=== PATIENT | female | born 1940 | race Caucasian/White ===

== ENCOUNTER 2023-05-13 12:56 | Inpatient (IN) | payer OTHER, MEDICARE ==
[~2023-05-13] VITALS: Ht 152.4 cm; Wt 105.2 kg
[2023-05-13 13:07] VITALS: BP_SYST 122; PULSE 74; RESP 20; TEMP 97.8; O2SAT 98
[2023-05-13 14:07] LABS: BASOPHILS # (AUTO) 0.4 K/uL (0.0-0.2); BASOPHILS % (AUTO) 3.4 % (0.0-2.0); EOSINOPHILS # (AUTO) 0.2 K/uL (0.0-0.4); EOSINOPHILS % (AUTO) 2.1 % (0.0-4.0); HEMATOCRIT 30.7 % (36-48); LYMPHOCYTES # (AUTO) 1.5 K/uL (1.0-5.5); LYMPHOCYTES % (AUTO) 13.8 % (20.5-51.5); MEAN CORPUSCULAR HEMOGLOBIN 27 pg (27-31); MEAN CORPUSCULAR HGB CONC 33 % (32-36); MEAN CORPUSCULAR VOLUME 82 fL (79.0-98.0); MONOCYTES % (AUTO) 9.3 % (1.7-9.3); NEUTROPHILS % (AUTO) 71.4 % (40.0-70.0); PLATELET COUNT (AUTO) 405 K/uL (130-430); RED BLOOD CELL COUNT(AUTO) 3.76 MIL/uL (4.2-6.2); RED CELL DISTRIBUTION WIDTH 16.4 % (9.0-15.0); WHITE BLOOD COUNT (AUTO) 11.2 K/uL (4.8-10.8)
[2023-05-13 14:21] LABS: ANION GAP 8 (5-15); CALCIUM 10.2 mg/dL (8.4-11.0); CARBON DIOXIDE 27 mmol/L (23-29); CHLORIDE 103 mmol/L (98-107); CREATININE 1.32 mg/dL (0.55-1.30); GLUCOSE 128 mg/dL (74-106); POTASSIUM 3.9 mmol/L (3.5-5.1); SODIUM SERUM 138 mmol/L (136-145); UREA NITROGEN, BLOOD 26 mg/dL (8-21)
[2023-05-13 14:25] LABS: ALANINE AMINOTRANSFERASE 25 U/L (12-78); ALBUMIN 2.7 g/dL (3.4-4.8); ASPARTATE AMINOTRANSFERASE 21 U/L (10-37); TOTAL BILIRUBIN 0.9 mg/dL (0.0-1.0); TOTAL PROTEIN, SERUM 7.1 g/dL (6.4-8.3)
[2023-05-13] MEDS ORDERED: CARV6.2554 PO (17:05)
[2023-05-13] MEDS ORDERED: ANASTROZOLE PO (17:05)
[2023-05-13] MEDS ORDERED: POTA5TAB2 PO (17:05)
[2023-05-13] MEDS ORDERED: FURO40TA5 PO (17:05)
[2023-05-13] MEDS ORDERED: DICYCLOMINE 20 MG PO (17:05)
[2023-05-13] MEDS ORDERED: ATOR-1 PO (17:05)
[2023-05-13] MEDS ORDERED: RIVA15TA PO (17:05)
[2023-05-13] MEDS ORDERED: SACU1TAB7 PO (17:05)
[2023-05-13] MEDS ORDERED: METF-379 PO (17:05)
[2023-05-13] MEDS ORDERED: FEBU40TA3 PO (17:05)
[2023-05-13 18:26] VITALS: BP_SYST 143; PULSE 77; RESP 18; TEMP 96.6; O2SAT 97
[2023-05-13] MEDS ORDERED: INSULIN REGULAR, HUMAN 100 UNITS/ML, 3 ML VIAL (humuLIN R) SUBCUT PRN (18:45)
[2023-05-13] MEDS ORDERED: traMADol HCL HCL 50 MG TABLET (ULTRAM) PO ONE (19:00)
[2023-05-13 20:00] VITALS: BP_SYST 124; PULSE 88; RESP 18; TEMP 98.6; O2SAT 95
[2023-05-13] MEDS: DAPTOmycin 420 MG in NS 50 ML IV SCH (21:47)
[2023-05-13] MEDS: SACUBITRIL/VALSARTAN 24 MG-26 MG 1 TABLET PO SCH (21:57)
[2023-05-13] MEDS: CARVEDILOL 6.25 MG TABLET (COREG) PO SCH (21:58)
[2023-05-13] MEDS: ATORVASTATIN 20 MG TABLET PO SCH (21:59)
[2023-05-13] MEDS: ACETAMINOPHEN 325 MG TABLET PO PRN (22:16)
[2023-05-13] MEDS: AMPICILLIN SODIUM/SULBACTAM NA 1.5 GM in NS 50 ML IV SCH (22:51)
[2023-05-14 00:14] VITALS: BP_SYST 107; PULSE 78; RESP 20; TEMP 97.4; O2SAT 94
[2023-05-14] MEDS: traMADol HCL HCL 50 MG TABLET (ULTRAM) PO SCH ×4 (06:00→17:08)
[2023-05-14] MEDS: AMPICILLIN SODIUM/SULBACTAM NA 1.5 GM in NS 50 ML IV SCH ×3 (06:22→21:44)
[2023-05-14 08:00] VITALS: BP_SYST 107; PULSE 70; RESP 19; TEMP 96.9; O2SAT 95
[2023-05-14] MEDS: ANASTROZOLE 1 MG TABLET (ARIMIDEX) PO SCH (08:31)
[2023-05-14] MEDS: DICYCLOMINE HCL 10 MG CAPSULE PO SCH (08:32)
[2023-05-14] MEDS: FUROSEMIDE 40 MG TABLET PO SCH (08:32)
[2023-05-14] MEDS: SACUBITRIL/VALSARTAN 24 MG-26 MG 1 TABLET PO SCH ×2 (08:32→21:06)
[2023-05-14] MEDS: POTASSIUM CHLORIDE 10 MEQ TABLET.ER PO SCH (08:32)
[2023-05-14] MEDS: metFORMIN HCL 500 MG TABLET PO SCH (08:32)
[2023-05-14] MEDS: CARVEDILOL 6.25 MG TABLET (COREG) PO SCH ×2 (08:36→20:42)
[2023-05-14] MEDS: FEBUXOSTAT 40 MG PO SCH ×2 (08:37→11:49)
[2023-05-14] MEDS ORDERED: FEBUXOSTAT PO SCH (09:00)
[2023-05-14] MEDS: RIVAROXABAN 15 MG TABLET PO SCH (09:04)
[2023-05-14 11:43] LABS: BASOPHILS # (AUTO) 0.1 K/uL (0.0-0.2); EOSINOPHILS # (AUTO) 0.2 K/uL (0.0-0.4); EOSINOPHILS % (AUTO) 2.5 % (0.0-4.0); HEMATOCRIT 30.9 % (36-48); HEMOGLOBIN 10.2 g/dL (12.0-16.0); LYMPHOCYTES # (AUTO) 1.3 K/uL (1.0-5.5); LYMPHOCYTES % (AUTO) 13.5 % (20.5-51.5); MEAN CORPUSCULAR HEMOGLOBIN 27 pg (27-31); MEAN CORPUSCULAR HGB CONC 33 % (32-36); MEAN CORPUSCULAR VOLUME 82 fL (79.0-98.0); MONOCYTES # (AUTO) 1.1 K/uL (0.0-1.0); MONOCYTES % (AUTO) 11.7 % (1.7-9.3); NEUTROPHILS # (AUTO) 6.7 K/uL (1.8-7.7); NEUTROPHILS % (AUTO) 71.3 % (40.0-70.0); PLATELET COUNT (AUTO) 393 K/uL (130-430); RED BLOOD CELL COUNT(AUTO) 3.77 MIL/uL (4.2-6.2); RED CELL DISTRIBUTION WIDTH 16.5 % (9.0-15.0); WHITE BLOOD COUNT (AUTO) 9.4 K/uL (4.8-10.8)
[2023-05-14 11:45] VITALS: BP_SYST 127; PULSE 79; RESP 18; TEMP 98.2; O2SAT 93
[2023-05-14 11:49] LABS: ERYTHROCYTE SEDIMENTATION RATE 12 MM/HR (0-20)
[2023-05-14] MEDS ORDERED: ANASTROZOLE 1 MG TABLET (ARIMIDEX) PO SCH (13:45)
[2023-05-14] MEDS ORDERED: ANASTROZOLE 1 MG TABLET (ARIMIDEX) PO ONE (14:00)
[2023-05-14 16:48] VITALS: BP_SYST 136; PULSE 77; RESP 17; TEMP 98; O2SAT 95
[2023-05-14 20:00] VITALS: BP_SYST 118; PULSE 73; RESP 18; TEMP 97.5; O2SAT 96
[2023-05-14] MEDS: ATORVASTATIN 20 MG TABLET PO SCH (20:41)
[2023-05-14] MEDS: LANOLIN ALCOHOL/MO/W.PET/CERES 57 GM CREAM..G. TP SCH (20:43)
[2023-05-15 00:46] VITALS: BP_SYST 124; PULSE 68; RESP 16; TEMP 97.8; O2SAT 98
[2023-05-15] MEDS: AMPICILLIN SODIUM/SULBACTAM NA 1.5 GM in NS 50 ML IV SCH ×3 (05:20→21:41)
[2023-05-15 08:00] VITALS: BP_SYST 136; PULSE 75; RESP 16; TEMP 98.2; O2SAT 94
[2023-05-15] MEDS ORDERED: ANASTROZOLE 1 MG TABLET (ARIMIDEX) PO SCH (09:00)
[2023-05-15] MEDS: metFORMIN HCL 500 MG TABLET PO SCH (09:53)
[2023-05-15] MEDS: FUROSEMIDE 40 MG TABLET PO SCH (09:57)
[2023-05-15] MEDS: ANASTROZOLE 1 MG TABLET (ARIMIDEX) PO SCH (09:57)
[2023-05-15] MEDS: FEBUXOSTAT 40 MG PO SCH (09:58)
[2023-05-15] MEDS: RIVAROXABAN 15 MG TABLET PO SCH (09:58)
[2023-05-15] MEDS: CARVEDILOL 6.25 MG TABLET (COREG) PO SCH ×2 (09:58→21:40)
[2023-05-15] MEDS: SACUBITRIL/VALSARTAN 24 MG-26 MG 1 TABLET PO SCH ×2 (09:59→21:48)
[2023-05-15] MEDS: DICYCLOMINE HCL 10 MG CAPSULE PO SCH (09:59)
[2023-05-15] MEDS: LANOLIN ALCOHOL/MO/W.PET/CERES 57 GM CREAM..G. TP SCH ×2 (09:59→21:48)
[2023-05-15] MEDS: POTASSIUM CHLORIDE 10 MEQ TABLET.ER PO SCH (09:59)
[2023-05-15] MEDS ORDERED: FEBUXOSTAT 40 MG PO SCH ×2 (11:00)
[2023-05-15 11:28] VITALS: BP_SYST 124; PULSE 72; RESP 18; TEMP 97.7
[2023-05-15 15:39] VITALS: O2SAT 95
[2023-05-15 15:40] VITALS: BP_SYST 126; PULSE 70; RESP 18; TEMP 97; O2SAT 100
[2023-05-15 20:00] VITALS: BP_SYST 136; PULSE 71; RESP 18; TEMP 97.9; O2SAT 95
[2023-05-15] MEDS: ATORVASTATIN 20 MG TABLET PO SCH (21:40)
[2023-05-15] MEDS: DAPTOmycin 420 MG in NS 50 ML IV SCH (23:09)
[2023-05-16 00:50] VITALS: BP_SYST 116; PULSE 75; RESP 16; TEMP 97.1; O2SAT 93
[2023-05-16 05:38] LABS: BASOPHILS # (AUTO) 0.1 K/uL (0.0-0.2); BASOPHILS % (AUTO) 1.1 % (0.0-2.0); EOSINOPHILS # (AUTO) 0.4 K/uL (0.0-0.4); HEMATOCRIT 29.5 % (36-48); HEMOGLOBIN 9.6 g/dL (12.0-16.0); LYMPHOCYTES # (AUTO) 1.8 K/uL (1.0-5.5); MEAN CORPUSCULAR HEMOGLOBIN 27 pg (27-31); MEAN CORPUSCULAR HGB CONC 33 % (32-36); MEAN CORPUSCULAR VOLUME 82 fL (79.0-98.0); MONOCYTES # (AUTO) 1.2 K/uL (0.0-1.0); NEUTROPHILS # (AUTO) 7.6 K/uL (1.8-7.7); NEUTROPHILS % (AUTO) 67.9 % (40.0-70.0); PLATELET COUNT (AUTO) 405 K/uL (130-430); RED CELL DISTRIBUTION WIDTH 16.1 % (9.0-15.0); WHITE BLOOD COUNT (AUTO) 11.2 K/uL (4.8-10.8)
[2023-05-16 05:55] LABS: ALANINE AMINOTRANSFERASE 20 U/L (12-78); ALBUMIN 2.2 g/dL (3.4-4.8); ANION GAP 11 (5-15); ASPARTATE AMINOTRANSFERASE 28 U/L (10-37); CALCIUM 9.5 mg/dL (8.4-11.0); CARBON DIOXIDE 25 mmol/L (23-29); CHLORIDE 105 mmol/L (98-107); CREATININE 1.12 mg/dL (0.55-1.30); GLUCOSE 96 mg/dL (74-106); POTASSIUM 4.3 mmol/L (3.5-5.1); SODIUM SERUM 141 mmol/L (136-145); TOTAL BILIRUBIN 0.8 mg/dL (0.0-1.0); TOTAL PROTEIN, SERUM 6.2 g/dL (6.4-8.3); UREA NITROGEN, BLOOD 25 mg/dL (8-21)
[2023-05-16] MEDS: AMPICILLIN SODIUM/SULBACTAM NA 1.5 GM in NS 50 ML IV SCH (06:27)
[2023-05-16 08:00] VITALS: BP_SYST 127; PULSE 71; RESP 18; TEMP 96.9; O2SAT 97
[2023-05-16] MEDS: FEBUXOSTAT 40 MG PO SCH (09:26)
[2023-05-16] MEDS: SACUBITRIL/VALSARTAN 24 MG-26 MG 1 TABLET PO SCH ×2 (09:26→22:09)
[2023-05-16] MEDS: LANOLIN ALCOHOL/MO/W.PET/CERES 57 GM CREAM..G. TP SCH ×2 (09:26→22:08)
[2023-05-16] MEDS: FUROSEMIDE 40 MG TABLET PO SCH (09:27)
[2023-05-16] MEDS: ANASTROZOLE 1 MG TABLET (ARIMIDEX) PO SCH (09:27)
[2023-05-16] MEDS: DICYCLOMINE HCL 10 MG CAPSULE PO SCH (09:28)
[2023-05-16] MEDS: POTASSIUM CHLORIDE 10 MEQ TABLET.ER PO SCH (09:28)
[2023-05-16] MEDS: CARVEDILOL 6.25 MG TABLET (COREG) PO SCH ×2 (09:29→22:24)
[2023-05-16] MEDS: metFORMIN HCL 500 MG TABLET PO SCH (09:29)
[2023-05-16] MEDS: RIVAROXABAN 15 MG TABLET PO SCH (09:30)
[2023-05-16] MEDS ORDERED: LACTOBACILLUS RHAMNOSUS GG 1 CAP CAPSULE PO ONE (11:00)
[2023-05-16 11:02] VITALS: O2SAT 97
[2023-05-16 12:00] VITALS: BP_SYST 138; PULSE 79; RESP 18; TEMP 98.4; O2SAT 79
[2023-05-16 16:00] VITALS: BP_SYST 136; PULSE 82; RESP 22; TEMP 98.9; O2SAT 97
[2023-05-16 20:00] VITALS: BP_SYST 127; PULSE 74; RESP 18; TEMP 97.6; O2SAT 94
[2023-05-16] MEDS: LACTOBACILLUS RHAMNOSUS GG 1 CAP CAPSULE PO SCH (22:23)
[2023-05-16] MEDS: ATORVASTATIN 20 MG TABLET PO SCH (22:24)
[2023-05-17 00:13] VITALS: BP_SYST 117; PULSE 75; RESP 20; TEMP 97.6; O2SAT 93
[2023-05-17 06:49] LABS: ALANINE AMINOTRANSFERASE 23 U/L (12-78); ALBUMIN 2.3 g/dL (3.4-4.8); ANION GAP 11 (5-15); ASPARTATE AMINOTRANSFERASE 24 U/L (10-37); CALCIUM 9.7 mg/dL (8.4-11.0); CARBON DIOXIDE 25 mmol/L (23-29); CHLORIDE 105 mmol/L (98-107); CREATININE 1.24 mg/dL (0.55-1.30); GLUCOSE 92 mg/dL (74-106); POTASSIUM 3.9 mmol/L (3.5-5.1); SODIUM SERUM 141 mmol/L (136-145); TOTAL BILIRUBIN 0.7 mg/dL (0.0-1.0); TOTAL PROTEIN, SERUM 6.1 g/dL (6.4-8.3); UREA NITROGEN, BLOOD 26 mg/dL (8-21)
[2023-05-17] MEDS: RIVAROXABAN 15 MG TABLET PO SCH (09:00)
[2023-05-17] MEDS: POTASSIUM CHLORIDE 10 MEQ TABLET.ER PO SCH (10:31)
[2023-05-17] MEDS: LACTOBACILLUS RHAMNOSUS GG 1 CAP CAPSULE PO SCH ×2 (10:31→20:44)
[2023-05-17] MEDS: SACUBITRIL/VALSARTAN 24 MG-26 MG 1 TABLET PO SCH ×2 (10:32→20:46)
[2023-05-17] MEDS: LANOLIN ALCOHOL/MO/W.PET/CERES 57 GM CREAM..G. TP SCH ×2 (10:32→20:46)
[2023-05-17] MEDS: DICYCLOMINE HCL 10 MG CAPSULE PO SCH (10:32)
[2023-05-17] MEDS: FEBUXOSTAT 40 MG PO SCH (10:32)
[2023-05-17] MEDS: metFORMIN HCL 500 MG TABLET PO SCH (10:32)
[2023-05-17 10:40] VITALS: BP_SYST 141; PULSE 72; RESP 18; TEMP 98.1; O2SAT 97
[2023-05-17] MEDS: CARVEDILOL 6.25 MG TABLET (COREG) PO SCH ×2 (12:46→20:51)
[2023-05-17] MEDS: FUROSEMIDE 40 MG TABLET PO SCH (12:47)
[2023-05-17] MEDS: ANASTROZOLE 1 MG TABLET (ARIMIDEX) PO SCH (12:50)
[2023-05-17 12:54] VITALS: BP_SYST 128; PULSE 72; RESP 18; TEMP 98.1; O2SAT 96
[2023-05-17 16:19] VITALS: BP_SYST 125; PULSE 76; RESP 18; TEMP 97.8; O2SAT 95
[2023-05-17] MEDS: ACETAMINOPHEN 325 MG TABLET PO PRN ×2 (17:51→20:45)
[2023-05-17 20:00] VITALS: BP_SYST 154; PULSE 71; RESP 18; TEMP 97.6; O2SAT 99
[2023-05-17] MEDS: DAPTOmycin 420 MG in NS 50 ML IV SCH (20:01)
[2023-05-17 20:15] VITALS: BP_SYST 116; PULSE 76; RESP 18; TEMP 97.2; O2SAT 96
[2023-05-17] MEDS: ATORVASTATIN 20 MG TABLET PO SCH (20:44)
[2023-05-18 00:10] VITALS: BP_SYST 115; PULSE 75; RESP 20; TEMP 97.6; O2SAT 93
[2023-05-18 04:00] VITALS: BP_SYST 114; PULSE 75; RESP 18; TEMP 97
[2023-05-18 08:01] VITALS: BP_SYST 130; PULSE 61; RESP 17; TEMP 97.2; O2SAT 97
[2023-05-18] MEDS: CARVEDILOL 6.25 MG TABLET (COREG) PO SCH ×2 (09:00→22:47)
[2023-05-18] MEDS: RIVAROXABAN 15 MG TABLET PO SCH (09:00)
[2023-05-18] MEDS: SACUBITRIL/VALSARTAN 24 MG-26 MG 1 TABLET PO SCH ×2 (09:17→22:38)
[2023-05-18] MEDS: DICYCLOMINE HCL 10 MG CAPSULE PO SCH (09:19)
[2023-05-18] MEDS: LACTOBACILLUS RHAMNOSUS GG 1 CAP CAPSULE PO SCH ×2 (09:19→22:34)
[2023-05-18] MEDS: POTASSIUM CHLORIDE 10 MEQ TABLET.ER PO SCH (09:19)
[2023-05-18] MEDS: FUROSEMIDE 40 MG TABLET PO SCH (09:21)
[2023-05-18] MEDS: metFORMIN HCL 500 MG TABLET PO SCH (09:21)
[2023-05-18] MEDS: FEBUXOSTAT 40 MG PO SCH (09:22)
[2023-05-18] MEDS: LANOLIN ALCOHOL/MO/W.PET/CERES 57 GM CREAM..G. TP SCH ×2 (09:22→22:48)
[2023-05-18 12:00] VITALS: BP_SYST 130; PULSE 71; RESP 18; TEMP 96.4; O2SAT 96
[2023-05-18] MEDS: ANASTROZOLE 1 MG TABLET (ARIMIDEX) PO SCH (17:27)
[2023-05-18 17:29] VITALS: BP_SYST 120; PULSE 70; RESP 18; TEMP 98.4; O2SAT 97
[2023-05-18 20:00] VITALS: O2SAT 97
[2023-05-18] MEDS: ATORVASTATIN 20 MG TABLET PO SCH (22:34)
[2023-05-19 00:45] VITALS: BP_SYST 137; PULSE 72; RESP 19; TEMP 98.3; O2SAT 95
[2023-05-19 08:00] VITALS: BP_SYST 126; PULSE 78; RESP 18; TEMP 98.4; O2SAT 97; O2SAT 98
[2023-05-19] MEDS: DICYCLOMINE HCL 10 MG CAPSULE PO SCH (09:42)
[2023-05-19] MEDS: ANASTROZOLE 1 MG TABLET (ARIMIDEX) PO SCH (09:42)
[2023-05-19] MEDS: metFORMIN HCL 500 MG TABLET PO SCH (09:43)
[2023-05-19] MEDS: POTASSIUM CHLORIDE 10 MEQ TABLET.ER PO SCH (09:45)
[2023-05-19] MEDS: LACTOBACILLUS RHAMNOSUS GG 1 CAP CAPSULE PO SCH ×2 (09:45→21:00)
[2023-05-19] MEDS: CARVEDILOL 6.25 MG TABLET (COREG) PO SCH ×2 (09:45→21:02)
[2023-05-19] MEDS: LANOLIN ALCOHOL/MO/W.PET/CERES 57 GM CREAM..G. TP SCH ×2 (09:54→21:03)
[2023-05-19] MEDS: FUROSEMIDE 40 MG TABLET PO SCH (09:54)
[2023-05-19] MEDS: FEBUXOSTAT 40 MG PO SCH (09:55)
[2023-05-19] MEDS: SACUBITRIL/VALSARTAN 24 MG-26 MG 1 TABLET PO SCH ×2 (10:27→21:00)
[2023-05-19] MEDS: RIVAROXABAN 15 MG TABLET PO SCH (10:27)
[2023-05-19] MEDS ORDERED: [UNRECOGNIZED DRUG - OTHER] INJ ONE (10:45)
[2023-05-19 11:44] VITALS: BP_SYST 129; PULSE 79; RESP 18; TEMP 98.1; O2SAT 96
[2023-05-19 16:39] VITALS: BP_SYST 139; PULSE 71; RESP 19; TEMP 98; O2SAT 99
[2023-05-19 20:00] VITALS: BP_SYST 128; PULSE 77; RESP 20; TEMP 97.7; O2SAT 94
[2023-05-19] MEDS: DAPTOmycin 420 MG in NS 50 ML IV SCH (20:59)
[2023-05-19] MEDS: ATORVASTATIN 20 MG TABLET PO SCH (21:01)
[2023-05-20 00:28] VITALS: BP_SYST 141; PULSE 76; RESP 19; TEMP 97.3; O2SAT 95
[2023-05-20 04:34] LABS: BASOPHILS # (AUTO) 0.3 K/uL (0.0-0.2); BASOPHILS % (AUTO) 3.4 % (0.0-2.0); EOSINOPHILS # (AUTO) 0.4 K/uL (0.0-0.4); EOSINOPHILS % (AUTO) 4.4 % (0.0-4.0); HEMATOCRIT 29.2 % (36-48); HEMOGLOBIN 9.6 g/dL (12.0-16.0); LYMPHOCYTES # (AUTO) 1.6 K/uL (1.0-5.5); LYMPHOCYTES % (AUTO) 18.9 % (20.5-51.5); MEAN CORPUSCULAR HEMOGLOBIN 27 pg (27-31); MEAN CORPUSCULAR HGB CONC 33 % (32-36); MEAN CORPUSCULAR VOLUME 81 fL (79.0-98.0); MONOCYTES % (AUTO) 12.4 % (1.7-9.3); NEUTROPHILS % (AUTO) 60.9 % (40.0-70.0); PLATELET COUNT (AUTO) 401 K/uL (130-430); RED BLOOD CELL COUNT(AUTO) 3.62 MIL/uL (4.2-6.2); RED CELL DISTRIBUTION WIDTH 16.3 % (9.0-15.0); WHITE BLOOD COUNT (AUTO) 8.2 K/uL (4.8-10.8)
[2023-05-20 05:08] LABS: ALANINE AMINOTRANSFERASE 29 U/L (12-78); ALBUMIN 2.5 g/dL (3.4-4.8); ANION GAP 8 (5-15); ASPARTATE AMINOTRANSFERASE 24 U/L (10-37); CALCIUM 9.7 mg/dL (8.4-11.0); CARBON DIOXIDE 26 mmol/L (23-29); CHLORIDE 107 mmol/L (98-107); CREATININE 1.21 mg/dL (0.55-1.30); GLUCOSE 91 mg/dL (74-106); POTASSIUM 4.1 mmol/L (3.5-5.1); SODIUM SERUM 141 mmol/L (136-145); TOTAL BILIRUBIN 0.5 mg/dL (0.0-1.0); UREA NITROGEN, BLOOD 27 mg/dL (8-21)
[2023-05-20 08:00] VITALS: BP_SYST 145; PULSE 97; RESP 18; TEMP 97; O2SAT 74; O2SAT 97
[2023-05-20] MEDS: ANASTROZOLE 1 MG TABLET (ARIMIDEX) PO SCH (08:22)
[2023-05-20] MEDS: POTASSIUM CHLORIDE 10 MEQ TABLET.ER PO SCH (08:23)
[2023-05-20] MEDS: metFORMIN HCL 500 MG TABLET PO SCH (08:23)
[2023-05-20] MEDS: LACTOBACILLUS RHAMNOSUS GG 1 CAP CAPSULE PO SCH ×2 (08:24→20:44)
[2023-05-20] MEDS: DICYCLOMINE HCL 10 MG CAPSULE PO SCH (08:24)
[2023-05-20] MEDS: FUROSEMIDE 40 MG TABLET PO SCH (08:24)
[2023-05-20] MEDS: CARVEDILOL 6.25 MG TABLET (COREG) PO SCH ×2 (08:24→20:45)
[2023-05-20] MEDS: SACUBITRIL/VALSARTAN 24 MG-26 MG 1 TABLET PO SCH ×2 (08:25→20:45)
[2023-05-20] MEDS: FEBUXOSTAT 40 MG PO SCH (08:25)
[2023-05-20] MEDS: LANOLIN ALCOHOL/MO/W.PET/CERES 57 GM CREAM..G. TP SCH ×2 (08:26→20:50)
[2023-05-20] MEDS: RIVAROXABAN 15 MG TABLET PO SCH (08:27)
[2023-05-20 11:48] VITALS: BP_SYST 113; PULSE 68; RESP 16; TEMP 97.7; O2SAT 91
[2023-05-20 17:27] VITALS: BP_SYST 128; PULSE 72; RESP 18; TEMP 98.1; O2SAT 97
[2023-05-20 20:00] VITALS: BP_SYST 121; PULSE 74; RESP 18; TEMP 98.9; O2SAT 96
[2023-05-20] MEDS: ceFAZolin SODIUM 2 GM in D5W 100 ML IV SCH (20:41)
[2023-05-20] MEDS: ATORVASTATIN 20 MG TABLET PO SCH (20:44)
[2023-05-21 05:40] VITALS: BP_SYST 109; PULSE 71; RESP 20; TEMP 97.7; O2SAT 96
[2023-05-21 08:25] VITALS: O2SAT 96
[2023-05-21] MEDS: ceFAZolin SODIUM 2 GM in D5W 100 ML IV SCH ×2 (08:56→21:08)
[2023-05-21] MEDS: LACTOBACILLUS RHAMNOSUS GG 1 CAP CAPSULE PO SCH ×2 (08:57→21:04)
[2023-05-21] MEDS: POTASSIUM CHLORIDE 10 MEQ TABLET.ER PO SCH (08:57)
[2023-05-21] MEDS: metFORMIN HCL 500 MG TABLET PO SCH (08:58)
[2023-05-21] MEDS: DICYCLOMINE HCL 10 MG CAPSULE PO SCH (08:58)
[2023-05-21] MEDS: FUROSEMIDE 40 MG TABLET PO SCH (08:59)
[2023-05-21] MEDS: SACUBITRIL/VALSARTAN 24 MG-26 MG 1 TABLET PO SCH ×3 (09:00→22:44)
[2023-05-21] MEDS: FEBUXOSTAT 40 MG PO SCH (09:00)
[2023-05-21] MEDS: CARVEDILOL 6.25 MG TABLET (COREG) PO SCH ×3 (09:10→22:44)
[2023-05-21] MEDS: ANASTROZOLE 1 MG TABLET (ARIMIDEX) PO SCH (09:16)
[2023-05-21] MEDS: LANOLIN ALCOHOL/MO/W.PET/CERES 57 GM CREAM..G. TP SCH ×2 (09:18→21:04)
[2023-05-21] MEDS: RIVAROXABAN 15 MG TABLET PO SCH (09:21)
[2023-05-21 09:40] VITALS: BP_SYST 128; RESP 16; TEMP 97.8; O2SAT 96
[2023-05-21 11:31] VITALS: BP_SYST 142; PULSE 72; RESP 18; TEMP 98.3; O2SAT 98
[2023-05-21 16:56] VITALS: BP_SYST 124; PULSE 69; RESP 18; TEMP 98.5; O2SAT 96
[2023-05-21 19:35] VITALS: BP_SYST 117; PULSE 66; RESP 18; TEMP 97.5; O2SAT 95
[2023-05-21] MEDS: ATORVASTATIN 20 MG TABLET PO SCH (21:04)
[2023-05-22 00:56] VITALS: BP_SYST 151; PULSE 66; RESP 16; TEMP 96.4; O2SAT 95
[2023-05-22 08:00] VITALS: BP_SYST 141; PULSE 65; RESP 17; TEMP 96.6; O2SAT 98; O2SAT 99
[2023-05-22] MEDS: ANASTROZOLE 1 MG TABLET (ARIMIDEX) PO SCH (08:35)
[2023-05-22] MEDS: POTASSIUM CHLORIDE 10 MEQ TABLET.ER PO SCH (08:35)
[2023-05-22] MEDS: DICYCLOMINE HCL 10 MG CAPSULE PO SCH (08:35)
[2023-05-22] MEDS: LACTOBACILLUS RHAMNOSUS GG 1 CAP CAPSULE PO SCH (08:35)
[2023-05-22] MEDS: metFORMIN HCL 500 MG TABLET PO SCH (08:36)
[2023-05-22] MEDS: CARVEDILOL 6.25 MG TABLET (COREG) PO SCH (08:36)
[2023-05-22] MEDS: FEBUXOSTAT 40 MG PO SCH (08:37)
[2023-05-22] MEDS: SACUBITRIL/VALSARTAN 24 MG-26 MG 1 TABLET PO SCH (08:38)
[2023-05-22] MEDS: FUROSEMIDE 40 MG TABLET PO SCH (08:39)
[2023-05-22] MEDS: ceFAZolin SODIUM 2 GM in D5W 100 ML IV SCH (08:40)
[2023-05-22] MEDS: LANOLIN ALCOHOL/MO/W.PET/CERES 57 GM CREAM..G. TP SCH (08:41)
[2023-05-22] MEDS: RIVAROXABAN 15 MG TABLET PO SCH (08:41)
[2023-05-22 11:50] VITALS: BP_SYST 123; PULSE 76; RESP 18; TEMP 97.8; O2SAT 93
[2023-05-22 14:59] VITALS: BP_SYST 123; PULSE 76; RESP 17; TEMP 97.8; O2SAT 95
[2023-05-22 15:44] VITALS: BP_SYST 118; PULSE 66; RESP 18; TEMP 97.8; O2SAT 96
== END 2023-05-22 19:00 | disposition short-term general hospital (02) | DRG 603 ==
LOC: SED 12:56 → SMU 17:25
PROVIDERS: ADMIT Family Medicine; ATTEND Family Medicine
PROC: 05HY33Z Insertion of Infusion Device into Upper Vein, Percutaneous Approach (ICD-10-PCS; principal; 2023-05-19)
PROC: 0S9D3ZZ Drainage of Left Knee Joint, Percutaneous Approach (ICD-10-PCS; 2023-05-19)
DX: L03.116 Cellulitis of left lower limb (principal); Z68.42 Body mass index [BMI] 45.0-49.9, adult; E44.1 Mild protein-calorie malnutrition; M71.562 Other bursitis, not elsewhere classified, left knee; D64.9 Anemia, unspecified; E66.01 Morbid (severe) obesity due to excess calories; N18.9 Chronic kidney disease, unspecified; E11.22 Type 2 diabetes mellitus with diabetic chronic kidney disease; I12.9 Hypertensive chronic kidney disease with stage 1 through stage 4 chronic kidney disease, or unspecified chronic kidney disease; Z85.3 Personal history of malignant neoplasm of breast; Z85.42 Personal history of malignant neoplasm of other parts of uterus; Z90.12 Acquired absence of left breast and nipple
CPT/HCPCS: 36415; 73700-TC; 76376; 80053; 82962; 83605; 85025; 85379; 85651-TC; 87040; 87070-TC; 87081; 97110-GP; 97116-GP; 97530-GP; 99285; J0295; J0696; J0878; J1815; J7060